=== PATIENT | female | born 1960 | race Caucasian/White ===

== ENCOUNTER 2016-11-26 09:50 | Emergency (ER) | payer SELFPAY ==
[~2016-11-26 09:50] MED LIST: AMOXICILLIN500 M1 PO; ATARAX PO; AURALGAN EAR DR14 ML AS; BAYER ASPIRIN325 M1 PO; CIPRO PO; FLEXERIL PO; FLEXERIL10 M1 PO; FLEXERIL10 MG PO; HYDROCODON-ACE1 EAC1 PO; HYDROCODON-ACE1 EAC9 PO; HYDROCODONE-APAP5 ML PO; IBUPROFEN100 MG PO; IBUPROFEN600 MG PO; LORTAB 5/500 TA1 TA1 PO; LORTAB 5/500 TA1 TA2 PO; MACROBID100 M1 PO; MEDROL2 MG; MEDROL4 MG/DOSE- PO; NAPROXEN PO; NEXIUM PO; NEXIUM20 MG PO; NITROGLYGERIN0.4 MG SL; NO MEDICATIONS; NORFLEX100 M1 PO; OMEPRAZOLE40 M1 PO; PEN-VEE K PO; PHENERGAN25 M1 PO; PREDNISONE PO; PREVACID; ROBAXIN PO; TORADOL10 MG PO; TYLENOL #3 PO; ULTRAM PO; VOLTAREN50 MG PO; VOLTAREN75 MG PO; ZOFRAN ODT4 MG/UDTAB PO; ZOVIRAX800 MG PO
[2016-11-26] MEDS ORDERED: LISINOPRIL (09:58)
== END 2016-11-26 10:35 | disposition home or self-care (01) ==
LOC: SED 09:50
DX: R21 Rash and other nonspecific skin eruption (principal); K21.9 Gastro-esophageal reflux disease without esophagitis
CPT/HCPCS: 99282